=== PATIENT | female | born 1950 | race Caucasian/White ===

== ENCOUNTER → 2020-07-01 | Outpatient (CLI) | payer MEDICARE ==
--- NOTE | 2020-07-01 16:24 | CONS ---
CONSULTATION DATE OF CONSULTATION: 07/01/2020 DATE OF SERVICE: A 70-year-old lady who has been [facility]uated [facility] for obstructive sleep apnea-hypopnea syndrome. The patient was seen in the [facility] for obstructive sleep apnea, last time 4 years ago. Presently, the patient's sleep schedule is from 9 to 10 p.m. to 6 to 7 a.m. Usually no problems with falling asleep although patient has TV in bedroom. Prefers to sleep on the stomach position. The patient is on treatment with CPAP for many years. With this therapy she wakes up from sleep once with nocturia. No history of hypnagogic hallucinations, sleep paralysis or cataplexy. [place] Sleepiness Scale is zero. Recently, patient had developed some problems with her machine. It was attempted to be fixed but it was not fully fixed. I checked CPAP unit. Pressure is 8 cm of water. For the last week the patient used it every night. Average 8.8 hours per night. Leak is 13 L/minute which is borderline. Apnea-hypopnea index 1.6, which is normal. The patient is using Dawson FX medium nasal pillow mask. PAST MEDICAL HISTORY: Positive for hypertension, hypothyroidism, hyperlipidemia. PAST SURGICAL HISTORY: Right knee replacement and bilateral shoulder replacement. MEDICATIONS: Aspirin 81 mg once a day, Atorvastatin 20 mg once a day, levothyroxine 125 mcg once a day. SOCIAL HISTORY: Negative for smoking. Alcohol consumption occasional. FAMILY HISTORY: Colon cancer in her mother. REVIEW OF SYSTEMS: Sometimes awakenings from sleep. Multiple awakenings and snoring without CPAP therapy. PHYSICAL EXAM: GENERAL: lady without distress. VITAL SIGNS: BP 154/94, HR 92, RR 15, height 5 feet 1 inch, weight 226, BMI 42.7, temperature 98.6, oxygen saturation at room air 95%. HEENT: PERRLA, EOMI: Evaluation of oropharynx showed tongue protrudes midline. Low position of soft palate. NECK: Supple, no JVD. Thyroid is not palpable. LUNGS: Clear to percussion and to auscultation. Good air exchange. No wheezing or rhonchi. HEART: S1, S2 regular. No murmurs, gallops, or rubs. ABDOMEN: Obese. Soft and nontender. Bowel sounds are present. No organomegaly appreciated. EXTREMITIES: No clubbing or cyanosis. ARTISTIC DIRECTOR: Awake, alert, and oriented X3. Cranial nerves 2 to 7 intact. There is no fasciculation or atrophy. noted. No focal deficits observed. IMPRESSION: 1. Obstructive sleep apnea-hypopnea syndrome for many years. The patient continues to use CPAP equipment. Presently her machine has some problems, some leak. CPAP unit needs to be replaced. 2. Obesity with BMI 42.7. 3. Hypertension. 4. Hypothyroidism. 5. Hyperlipidemia. 6. Status post total right knee replacement. 7. Status post bilateral shoulder replacement. PLAN: 1. Prescription for new CPAP unit. 2. Sleep hygiene with regular time in bed for 7 1/2 -8 hours. 3. No driving if feeling sleepiness. 4. Losing weight program. 5. I will see patient for follow-up visit after she starts to use her new machine for evaluation response and treatment compliance with treatment and make any necessary adjustments. Thank you very much for allowing me to participate in the management of your patient. South Zuniga MD, PhD, FAASM Diplomat of [place] [employer] [place] [employer] Supervisor of [facility] [place] MMODL / JOAQUIMN: [id number] /
== END | disposition home or self-care (01) ==
LOC: SLEEP 13:28
PROVIDERS: ATTEND Internal Medicine
DX: G47.33 Obstructive sleep apnea (adult) (pediatric) (principal); E66.9 Obesity, unspecified; Z68.41 Body mass index [BMI] 40.0-44.9, adult; I10 Essential (primary) hypertension; E03.9 Hypothyroidism, unspecified; E78.5 Hyperlipidemia, unspecified; Z96.651 Presence of right artificial knee joint; Z96.611 Presence of right artificial shoulder joint; Z99.89 Dependence on other enabling machines and devices; Z79.899 Other long term (current) drug therapy; Z79.890 Hormone replacement therapy; Z79.82 Long term (current) use of aspirin; Z96.612 Presence of left artificial shoulder joint
CPT/HCPCS: 99211

== ENCOUNTER → 2021-03-02 | Outpatient (CLI) | payer MEDICARE ==
[2021-03-02 12:59] VITALS: BP 152/101; PULSE 75; RESP 16; TEMP 98.7
--- NOTE | 2021-03-02 13:26 | P.GSHP ---
History of Present Illness H&P Date: 03/02/21 Chief Complaint: Carcinoma right breast Adela is a 71-year-old white female with a biopsy-proven carcinoma of the right breast seen in conjunction with her daughter in consultation for Dr. Henry Colby. She underwent a bilateral screening mammogram [place] [address]. This led to additional workup of the right breast which revealed 2 lesions in the 4 o'clock position. Each were biopsied and proven to be invasive ductal carcinoma. The largest lesion is 7 mm x 7 mm. The patient does not feel any lumps masses or nodules of concern in either breast. She is not complaining of any nipple discharge or skin changes. There is concern that the lesion was present last year. The patient on 02-14-21 underwent a computed tomography scan following a colonoscopy secondary to abdominal pain. Although no evidence of perforation was identified she was noted to have a kidney stone. She was told she would need lithotripsy to be performed however this is not yet been set up. She is symptomatic and her right flank related to the kidney stone. The patient states at the colonoscopy 2 polyps were removed, she believes she should have a repeat colonoscopy in 5 years. The patient also has a vaginal wall prolapse and has a date for surgery scheduled on 03-16-21. This is with Dr. Casarez in [place]. She has never had any surgery on her breasts. She is not complaining of any infection or trauma to the breast. ER Positive, MI positive, HER-2 -, grade 2 T1 N0 M0/stage IA; Caffeine: none nicotine: none chocolate: daily Family History: mother: colon cancer Hormonal History: menarche: 13 , breast fed: yes, age at first : 20 menopause: hysterctomy at 33 left ovaries, not sure when went through menopause BCP: none hormones: for less than a year at menopause Surgical history: Hysterectomy left ovaries Appendectomy Cholecystectomy Bilateral shoulder replacement Right knee replaced, spacer in the left knee Medical History: Asthma Hypothyroid high lipids asa daily Social history: Nicotine: Negative Alcohol: He is Drugs: Negative Social history: - Constitutional Constitutional: Denies chills, Denies fever - EENT Eyes: denies blurred vision, denies pain Ears: deny: decreased hearing, tinnitus Ears, nose, mouth and throat: Denies headache, Denies sore throat - Breasts Breasts: bilateral: as per HPI - Cardiovascular Cardiovascular: Denies chest pain, Denies shortness of breath - Respiratory Respiratory: Denies cough, Denies 7 - Gastrointestinal Gastrointestinal: Reports diarrhea, Denies abdominal pain, Denies nausea, Denies vomiting - Genitourinary (Female) Genitourinary: Reports kidney stones - Menstruation Menstruation: Reports post hysterectomy - Musculoskeletal Musculoskeletal: Reports as per HPI - Integumentary Integumentary: Denies pruritus, Denies rash - Neurological Neurological: Denies numbness, Denies weakness - Psychiatric Psychiatric: Denies anxiety, Denies depression - Endocrine Comment: hypothyroid - Hematologic/Lymphatic Comment: daily aspirin - Allergic/Immunologic Allergic/Immunologic: Reports seasonal allergies Medications and Allergies Home Medications Medication Instructions Recorded Confirmed Type Aspirin [Adult Low Dose Aspirin EC] 81 mg PO HS 03/02/21 03/02/21 History Atorvastatin [Lipitor] 20 mg PO QAM 03/02/21 03/02/21 History Cholecalciferol (Vitamin D3) 125 mcg PO QAM 03/02/21 03/02/21 History [Vitamin D3 (125 MCG = 5,000 IU)] Levothyroxine Sodium [Synthroid] 125 mcg PO QAM 03/02/21 03/02/21 History Sodium Bicarbonate 325 mg PO QAM 03/02/21 03/02/21 History Allergies Allergy/AdvReac Type Severity Reaction Status Date / Time Iodinated Contrast Media Allergy Anaphylaxis Unverified 03/02/21 12:24 Surgical - Exam BMI 41 - General no distress - Eyes normal ocular movement - ENT no hearing loss - Neck no masses, trachea midline - Respiratory normal respiratory effort, clear to auscultation - Cardiovascular Rhythm: regular Heart Sounds: normal: S1, S2 - Abdomen Abdomen: soft, non tender, no guarding, no rigid, no rebound - Integumentary normal turgor - Neurologic no disoriented, no combative - Musculoskeletal normal gait, normal posture - Psychiatric oriented to time, oriented to person, oriented to place, speech is normal, memory intact Breast Exam: Bra: 42A inspection: bilateral grade 2 ptosis Palpation: Right breast: Ecchymosis from prior biopsy, no evidence of hematoma or infection, multiple positional exam increased nodularity 4 o'clock position no other dominant masses or nodules of concern Right axilla: No adenopathy of concern Left breast: Multiple positional exam fibrocystic changes no dominant masses or nodules of concern Results Mammogram and ultrasound reviewed with Dr. Hinton Assessment and Plan Assessment: Impression: 1. Stage I a multifocal right breast cancer at 4:00 2. Bladder prolapse 3. Kidney stone 4. Hypothyroid 5. Patient takes daily aspirin Plan: 1. Presentation of case at tumor board 2. Patient would prefer to have the bladder prolapse repaired prior to surgical intervention for the breast cancer we will discuss this with medical oncology 3. Kidney stone must be addressed ( she has an appointment with urology next week, however if she is symptomatic she is going to the emergency room) 4. Patient has appointment with medical oncology tomorrow, would like to know if patient could be put on an antiestrogen until after bladder surgery and kidney stone is taken care of and then surgery for the breast cancer We will discuss surgical options for the breast cancer. The timing of the surgery will be dependent on her other procedures. CC: Rosaura Clement Cc: Dr. Henry Colby
== END ==
LOC: WWCWWP 11:49
PROVIDERS: ATTEND Surgery
DX: C50.911 Malignant neoplasm of unspecified site of right female breast (principal); N20.0 Calculus of kidney; E03.9 Hypothyroidism, unspecified; N81.10 Cystocele, unspecified; J45.909 Unspecified asthma, uncomplicated; Z17.0 Estrogen receptor positive status [ER+]; Z79.899 Other long term (current) drug therapy; Z79.82 Long term (current) use of aspirin; Z91.041 Radiographic dye allergy status

== ENCOUNTER → 2021-03-24 | Outpatient (CLI) | payer MEDICARE ==
[2021-03-24 10:54] LABS: Basophils % (A) 1 %; Eosinophils # (A) 0.4 k/uL (0-0.7); Eosinophils % (A) 7 %; HCT 45.8 % (34.0-46.0); HGB 15.2 gm/dL (11.4-16.0); Lymphocytes % (A) 18 %; MCH 30.9 pg (25.0-35.0); MCHC 33.2 g/dL (31.0-37.0); Mean Platelet Volume 6.7; Monocytes # (A) 0.3 k/uL (0-1.0); Monocytes % (A) 6 %; Neutrophils # (A) 3.7 k/uL (1.3-7.7); Neutrophils % (A) 67 %; Platelet Count 255 k/uL (150-450); RBC 4.93 m/uL (3.80-5.40); RDW 13.1 % (11.5-15.5); WBC 5.6 k/uL (3.8-10.6)
[2021-03-24 11:21] LABS: Calcium 9.6 mg/dL (8.4-10.2); Potassium 4.4 mmol/L (3.5-5.1)
[2021-03-24 11:31] LABS: Appearance,Urine Clear (Clear); Bilirubin,Urine Negative (Negative); Blood,Urine Small (Negative); Color,Urine Yellow; Glucose,Urine (UA) Negative (Negative); Hyaline Casts,Urine 13 /lpf (0-2); Ketones,Urine Negative (Negative); Leukocyte Esterase,Urine Moderate (Negative); Mucus,Urine Rare /hpf; Nitrite,Urine Negative (Negative); Protein,Urine Negative (Negative); RBC,Urine 4 /hpf (0-5); Specific Gravity,Urine 1.015 (1.001-1.035); Squamous Epithelial Cell,Urine 1 /hpf (0-4); Urobilinogen,Urine <2.0 mg/dL (<2.0); WBC,Urine 9 /hpf (0-5)
== END | disposition home or self-care (01) ==
LOC: LABPAT 09:56
PROVIDERS: ATTEND Urology
DX: Z01.812 Encounter for preprocedural laboratory examination (principal); N20.0 Calculus of kidney; R13.0 Aphagia
CPT/HCPCS: 36415; 80048; 81001; 85025; 87086

== ENCOUNTER 2021-03-31 09:19 | Day surgery (SDC) | payer MEDICARE ==
[2021-03-29 15:13] VITALS: BMI 40.6
--- NOTE | 2021-03-31 09:00 | P.HPIHPCON ---
History of Present Illness H&P Date: 03/31/21 Chief Complaint: Right-sided renal stone This is a 71-year-old female, with a history of 2.3 cm right-sided renal stone. She is symptomatic from her stone. Discussed with her given the size of her stone the recommendation of performing it percutaneous nephrolithotomy. I also discussed with her the option of doing a staged ESWL versus staged ureteroscopy, but did discussed both operations have lower stone clearance rate, compared to percutaneous nephrolithotomy. She agreed to proceed with right-sided percutaneous nephrolithotomy. Discussed with her the risk of the surgery which includes but not limited to bleeding, infection, and injury to the kidney, discussed also the risk of injury to nearby organs which includes but not limited to the liver, lung, bowel. Discussed also with her risk from anesthesia. She understood all the risk and agreed to proceed Consent for Procedure: I have explained the operation/procedure to the patient, including the risks, benefits, side effects, alternative therapies (including not receiving the pr oposed treatment or service), the likelihood of the patient achieving his/her goals, and potential recuperation problems for the procedure/sedation/analgesia, as well as any blood products, if indicated. I also explained to the patient the risks, benefits and side effects of the alternatives, as well as the risks related to not receiving the proposed procedure, care, treatment, or services. Past Medical History Past Medical History: Asthma, Cancer, Hyperlipidemia, Osteoarthritis (OA), Sleep Apnea/CPAP/BIPAP, Thyroid Disorder Additional Past Medical History / Comment(s): kidney stones; hx.of bladder prolapse; just finished antibiotic for pneumonia, cough is much improved, just dx. w/breast cancer & will be having surgery for that next month History of Any Multi-Drug Resistant Organisms: None Reported Past Surgical History: Appendectomy, Cholecystectomy, Hysterectomy Additional Past Surgical History / Comment(s): JELENA shoulders replaced, RT knee replaced, spacer left knee, repair of [facility] prol[facility] within past 2 weeks Past Anesthesia/Blood Transfusion Reactions: No Reported Reaction Smoking Status: Never smoker Medications and Allergies Home Medications Medication Instructions Recorded Confirmed Type Aspirin [Adult Low Dose Aspirin EC] 81 mg PO HS 03/02/21 03/29/21 History Atorvastatin [Lipitor] 20 mg PO QAM 03/02/21 03/29/21 History Cholecalciferol (Vitamin D3) 25 mcg PO QAM 03/02/21 03/29/21 History [Vitamin D3 (125 MCG = 5,000 IU)] Levothyroxine Sodium [Synthroid] 125 mcg PO QAM 03/02/21 03/29/21 History Acetaminophen/Diphenhydramine 1 tab PO HS 03/29/21 03/29/21 History [Tylenol PM 500-25mg] Albuterol Inhaler [Ventolin Hfa 2 puff INHALATION RT-QID PRN 03/29/21 03/29/21 History Inhaler] Albuterol Nebulized [Ventolin 1.25 mg INHALATION Q6H PRN 03/29/21 03/29/21 History Nebulized] Loratadine [Claritin] 10 mg PO DAILY PRN 03/29/21 03/29/21 History Allergies Allergy/AdvReac Type Severity Reaction Status Date / Time Iodinated Contrast Media Allergy Anaphylaxis Unverified 03/29/21 15:13 Surgical - Exam - General no distress, moderate pain - Eyes PERRL, normal ocular movement - ENT normal nares, normal mucosa - Respiratory normal expansion, normal respiratory effort - Abdomen Abdomen: soft, non tender - Psychiatric oriented to time, oriented to person, oriented to place Assessment and Plan Assessment: Or for right-sided percutaneous nephrolithotomy
[~2021-03-31 09:19] MED LIST: DEXAMETHASONE SOD PHOSPHATE 4 MG/ML 1 ML VIAL IV ONE; HYDROmorphone 0.5 MG/0.5 ML SYRINGE IVP PRN; ONDANSETRON 4 MG/2 ML VIAL IVP ONE
--- NOTE | 2021-03-31 09:43 | XR ---
EXAMINATION TYPE: XR KUB DATE OF EXAM: 03/31/2021 Comparison: 11/25/2012 Clinical History: 71-year-old female preoperative evaluation, kidney stones Findings: Degenerated levoconvex curvature of the lumbar spine. 2.0 cm calcification right midabdomen. Nonobstr uctive bowel gas pattern. Mild scattered stool. Cholecystectomy clips. Impression: 2 cm right renal calculus may be located within the renal collecting system.
[2021-03-31] MEDS: LACTATED RINGERS 1,000 ML IV SCH (09:51)
[2021-03-31] MEDS ORDERED: ALBUTEROL NEBULIZED 2.5 MG/3 ML INHALATION PRN (11:23)
[2021-03-31] MEDS ORDERED: ACETAMINOPHEN TAB 325 MG TAB PO PRN (11:23)
[2021-03-31] MEDS ORDERED: MAG HYDROX/AL HYDROX/SIMETH 30 ML CUP PO PRN (11:23)
[2021-03-31] MEDS ORDERED: ONDANSETRON 4 MG/2 ML VIAL IVP PRN ×2 (11:23→11:25)
[2021-03-31] MEDS ORDERED: ALBUTEROL NEBULIZED 1.25 MG/3 ML INHALATION PRN (11:23)
[2021-03-31] MEDS ORDERED: LORATADINE 10 MG TAB PO PRN (11:23)
[2021-03-31] MEDS ORDERED: MORPHINE SULFATE 4 MG/ML SYRINGE IVP PRN (11:25)
[2021-03-31] MEDS ORDERED: MIDAZOLAM 2 MG/2 ML VIAL ONE (11:29)
[2021-03-31] MEDS ORDERED: fentaNYL (PF) 50 MCG/ML 2 ML AMP ONE (11:29)
[2021-03-31] MEDS ORDERED: ROCURONIUM 10 MG/ML (5 ML VIAL) IV ONE (11:29)
[2021-03-31] MEDS ORDERED: GLYCOPYRROLATE 0.2 MG/ML 2 ML VIAL ONE (11:29)
[2021-03-31] MEDS ORDERED: diphenhydrAMINE 50 MG/ML 1 ML VIAL ONE (11:29)
[2021-03-31] MEDS ORDERED: SUCCINYLCHOLINE CHLORIDE 100 MG/5 ML SYR IV ONE (11:29)
[2021-03-31] MEDS ORDERED: LIDOCAINE 1% INJ 10MG/ML (20 ML MDV) ONE (11:29)
[2021-03-31] MEDS ORDERED: PROPOFOL 10 MG/ML 20 ML VIAL IV ONE (11:29)
[2021-03-31] MEDS ORDERED: NEOSTIGMINE 1 MG/ML 10 ML VIAL ONE (11:29)
[2021-03-31] MEDS ORDERED: IOPAMIDOL-370 50ML BTL IRRIGATION ONE (12:41)
--- NOTE | 2021-03-31 13:52 | P.OP ---
Date of Procedure: 03/31/21 Preoperative Diagnosis: Right renal calculi Postoperative Diagnosis: Same Procedure(s) Performed: Cystoscopy, right ureteral catheterization, percutaneous nephrolithotomy and nephrostomy tube placement Implants: None Anesthesia: ULYSSES Surgeon: Ja Whitten Estimated Blood Loss (ml): 100 Pathology: other (Right renal stone) Condition: stable Disposition: PACU Indications for Procedure: This is a 71-year-old female, with a history of 2.3 cm right-sided renal stone. She is symptomatic from her stone. Discussed with her given the size of her stone the recommendation of performing it percutaneous nephrolithotomy. I also discussed with her the option of doing a staged ESWL versus staged ureteroscopy, but did discussed both operations have lower stone clearance rate, compared to percutaneous nephrolithotomy. She agreed to proceed with right-sided percutaneous nephrolithotomy. Discussed with her the risk of the surgery which includes but not limited to bleeding, infection, and injury to the kidney, discussed also the risk of injury to nearby organs which includes but not limited to the liver, lung, bowel. Discussed also with her risk from anesthesia. She understood all the risk and agreed to proceed Operative Findings: Large right-sided renal stone Description of Procedure: Patient was brought to the operating room general anesthesia was induced she was prepped and draped in sterile fashion placed in frog leg position on the stretcher. Cystoscopy fitted with a 21-[place] Islander sheath was inserted per urethra, brief cystoscopy was performed showed no abnormality within the bladder, of note I was not able to visualize the dome lateral wall the bladder completely. Attention was then carried to the right ureteral orifice which was intubated with a balloon occluding catheter. 16-[place]er Walters was placed, and the balloon catheter was secured to the Walters. At this time the patient was placed in prone position, all pressure points were padded. The right flank was prepped and drap ed in sterile fashion. Next air was injected through the balloon occluding catheter, and right renal access was obtained by Dr. Royal, please see his op note for his portion of the operation. After 2 wires were passed down the ureter a nephrostomy balloon dilator was passed over this wire, and under fluoroscopy the tract was dilated. Next a 30-[place]er access sheath was passed over the balloon dilator and into the kidney. The access was at the middle calyx. Next the rigid nephroscope was advanced through the access sheath and a large stone was visualized in the renal pelvis. Using the ultrasound the stone was fragmented into small fragments, the fragments were removed and sent for analysis. Repeat renoscopy showed no additional fragments within the kidney. Next a flexible cystoscope was advanced through the access sheath and renoscopy was performed evaluating all the calyx which showed no other stones within the kidney, there was no injury to the kidney, there was no evidence of any ureteral stone at the proximal ureter. I was unable to advance the scope into the proximal ureter. At this time a 10-[place] nephrostomy tube was passed over the wire, the location was confirmed on fluoroscopy. The tube was secured to the patient's skin using 2-0 silk. Sterile dressing was placed. Patient tolerated the procedure well was taken to recovery in stable condition
[2021-03-31] MEDS: fentaNYL (PF) 50 MCG/ML 2 ML AMP IVP ONE ×2 (14:19→14:25)
[2021-03-31] MEDS ORDERED: KETOROLAC 15 MG/ML 1 ML VIAL IVP ONE (14:19)
[2021-03-31] MEDS ORDERED: HYDROmorphone 0.5 MG/0.5 ML SYRINGE IVP ONE (14:30)
--- NOTE | 2021-03-31 14:33 | FL ---
EXAMINATION TYPE: FL Perc Nephrostomy New Access DATE OF EXAM: 03/31/2021 COMPARISON: NONE HISTORY: Right renal stone Procedure had been discussed with the patient by Dr. Stark, risks, benefits, alternatives, were dis cussed and any questions were answered. Informed consent was obtained. The patient was in a semipro ne position prepped and draped on the OR table in the usual sterile fashion. Utilizing a 15 cm lengt h [place] needle a single pass was made into a lower pole posterior calyx under fluoroscopic guidance. An 0.018 guidewire is passed through the needle and there was placement of a 6-[place]namese catheter sheat h system. There was conversion to a 0.035 system was performed with passage of a guidewire into the ureter utilizing a directional catheter. A second safety wire was placed. Remaining portion of pro cedure performed by . Approximately 2 minutes and 20 seconds of fluoroscopy was provided. IMPRESSION: 1. Successful intraoperative right nephrostomy prior to nephrolithotomy.
[2021-03-31] MEDS ORDERED: LACTATED RINGERS 1,000 ML IV ONE (14:57)
[2021-03-31] MEDS ORDERED: ceFAZolin 1 GM in SODIUM CHLORIDE 0.9% 100 ML IVPB SCH (16:00)
[2021-03-31] MEDS: DEXTROSE 5%-0.45% NACL 1,000 ML IV SCH (16:17)
[2021-03-31] MEDS: HEPARIN SODIUM,PORCINE/PF 5,000 UNIT/0.5 ML SYRINGE SQ SCH (16:17)
[2021-03-31] MEDS: KETOROLAC 15 MG/ML 1 ML VIAL IVP SCH (18:18)
[2021-03-31] MEDS ORDERED: diphenhydrAMINE 25 MG CAP PO SCH (21:00)
[2021-03-31] MEDS ORDERED: NON FORMULARY DRUG (Acetaminophen/Diphenhydramine [Tylenol Pm 500-25mg] 1 EACH Tablet) PO SCH (21:00)
[2021-03-31] MEDS ORDERED: ACETAMINOPHEN TAB 500 MG TAB PO SCH (21:00)
[2021-04-01] MEDS: KETOROLAC 15 MG/ML 1 ML VIAL IVP SCH ×2 (00:07→06:05)
[2021-04-01] MEDS: HEPARIN SODIUM,PORCINE/PF 5,000 UNIT/0.5 ML SYRINGE SQ SCH ×2 (00:07→07:52)
[2021-04-01] MEDS: DEXTROSE 5%-0.45% NACL 1,000 ML IV SCH ×2 (01:30→07:52)
[2021-04-01] MEDS: LACTATED RINGERS 1,000 ML IV SCH (06:04)
[2021-04-01] MEDS ORDERED: LEVOTHYROXINE 125 MCG TAB PO SCH (06:30)
[2021-04-01 08:51] VITALS: BP 155/70; PULSE 72; RESP 17; TEMP 97.9
[2021-04-01] MEDS ORDERED: ATORVASTATIN 20 MG TAB PO SCH (09:00)
--- NOTE | 2021-04-01 09:03 | P.DS ---
Providers Attending physician: Ja Whitten MD Primary care physician: [facility] Course: This is 71 yo female with hx of large right sided renal stone. She underwent right sided PCNL on 03/31/21, please see op note dated 03/31/21 for surgery details. She was admitted to the hospital post operatively. Her fiore was removed on POD #1. She was discharged home on POD #1 at time of discharge she was tolerating diet, ambulating and pain was well controlled. Plan - Discharge Summary Discharge Rx Participant: Yes New Discharge Prescriptions: New Ketorolac [Toradol] 10 mg PO Q6HR PRN #15 tab PRN Reason: Pain Cephalexin [Keflex] 500 mg PO Q8HR #15 cap HYDROcodone/APAP 5-325MG [[place] 5-325] 1 tab PO Q6HR PRN 3 Days #10 tab PRN Reason: Pain No Action Cholecalciferol (Vitamin D3) [Vitamin D3 (125 MCG = 5,000 IU)] 25 mcg PO QAM Atorvastatin [Lipitor] 20 mg PO QAM Aspirin [Adult Low Dose Aspirin EC] 81 mg PO HS Levothyroxine Sodium [Synthroid] 125 mcg PO QAM Albuterol Inhaler [Ventolin Hfa Inhaler] 2 puff INHALATION RT-QID PRN PRN Reason: Shortness Of Breath Acetaminophen/Diphenhydramine [Tylenol PM 500-25mg] 1 tab PO HS Loratadine [Claritin] 10 mg PO DAILY PRN PRN Reason: allergies Albuterol Nebulized [Ventolin Nebulized] 1.25 mg INHALATION Q6H PRN PRN Reason: Shortness Of Breath Discharge Medication List Aspirin [Adult Low Dose Aspirin EC] 81 mg PO HS 03/02/21 [History] Atorvastatin [Lipitor] 20 mg PO QAM 03/02/21 [History] Cholecalciferol (Vitamin D3) [Vitamin D3 (125 MCG = 5,000 IU)] 25 mcg PO QAM 03/02/21 [History] Levothyroxine Sodium [Synthroid] 125 mcg PO QAM 03/02/21 [History] Acetaminophen/Diphenhydramine [Tylenol PM 500-25mg] 1 tab PO HS 03/29/21 [History] Albuterol Inhaler [Ventolin Hfa Inhaler] 2 puff INHALATION RT-QID PRN 03/29/21 [History] Albuterol Nebulized [Ventolin Nebulized] 1.25 mg INHALATION Q6H PRN 03/29/21 [History] Loratadine [Claritin] 10 mg PO DAILY PRN 03/29/21 [History] Cephalexin [Keflex] 500 mg PO Q8HR #15 cap 04/01/21 [Rx] HYDROcodone/APAP 5-325MG [[place] 5-325] 1 tab PO Q6HR PRN 3 Days #10 tab 04/01/21 [Rx] Ketorolac [Toradol] 10 mg PO Q6HR PRN #15 tab 04/01/21 [Rx] Activity/Diet/Wound Care/Special Instructions: Increase fluid intake You may see some blood in urine You may shower no baths No heavy lifting or straining Discharge Disposition: HOME SELF-CARE
== END 2021-04-01 12:47 | disposition home or self-care (01) ==
LOC: OR 09:19 → 6PED 13:31 → OR 04-01 12:47
PROVIDERS: ATTEND Urology
DX: N20.0 Calculus of kidney (principal); J45.909 Unspecified asthma, uncomplicated; E78.5 Hyperlipidemia, unspecified; M19.90 Unspecified osteoarthritis, unspecified site; G47.33 Obstructive sleep apnea (adult) (pediatric); Z20.822 Contact with and (suspected) exposure to COVID-19; E07.9 Disorder of thyroid, unspecified; C50.919 Malignant neoplasm of unspecified site of unspecified female breast; Z87.442 Personal history of urinary calculi; Z87.01 Personal history of pneumonia (recurrent); Z90.49 Acquired absence of other specified parts of digestive tract; Z90.710 Acquired absence of both cervix and uterus; Z96.612 Presence of left artificial shoulder joint; Z96.611 Presence of right artificial shoulder joint; Z96.651 Presence of right artificial knee joint; Z98.890 Other specified postprocedural states; Z79.82 Long term (current) use of aspirin; Z79.890 Hormone replacement therapy; Z79.899 Other long term (current) drug therapy; Z91.041 Radiographic dye allergy status; Z91.048 Other nonmedicinal substance allergy status
CPT/HCPCS: 50081; 86900; 86901; 86850; 82365; 87635; 50432; 74018; C1758; C2628 ×2; C1769 ×6; C1729 ×2; C1894 ×2; J2250; J1200; J1100; J2710; J0690 ×3; J2405; J2001; J3010; J1885 ×2; J0330; J2704; J1170; Q9967; J1644 ×2

== ENCOUNTER → 2021-04-14 | Outpatient (CLI) | payer MEDICARE ==
[2021-04-14 15:14] VITALS: BP 162/95; PULSE 103; RESP 18; TEMP 98.4
--- NOTE | 2021-04-14 15:46 | P.PN ---
Subjective Progress Note Date: 04/14/21 Principal diagnosis: Right breast invasive ductal carcinoma/multifocal/stage IA Adela is a 71-year-old white female with a biopsy-proven carcinoma of the right breast seen in conjunction with her daughter in consultation for Dr. Henry Colby on 03-02-21. She underwent a bilateral screening mammogram on . This led to additional workup of the right breast which revealed 2 lesions in the 4 o'clock position. Each were biopsied and proven to be invasive ductal carcinoma. The largest lesion is 7 mm x 7 mm. The patient does not feel any lumps masses or nodules of concern in either breast. She is not complaining of any nipple discharge or skin changes. There is concern that the lesion was present last year. Her case was presented at tumor Board and there was recommendation for lumpectomy with sentinel node biopsy. She will be recommended to undergo ra diation therapy following the lumpectomy she is presently not on hormone therapy although this was discussed with medical oncology as her surgery was delayed secondary to patient request to have bladder prolapse repaired as well as a symptomatic kidney stone taken care of. The patient on 02-14-21 underwent a computed tomography scan following a colonoscopy secondary to abdominal pain. Although no evidence of perforation was identified she was noted to have a kidney stone. She was told she would need lithotripsy to be performed however this is not yet been set up. She is symptomatic and her right flank related to the kidney stone. She had a lithotripsy performed followed by removal of the stone through an incision in the back. The drain was removed earlier today. She was cleared for surgery from urology. The bladder prolapse was operated on 03-16-21, she has healed well from this. The patient states at the colonoscopy 2 polyps were removed, she believes she should have a repeat colonoscopy in 5 years. The patient also has a vaginal wall prolapse and has a date for surgery scheduled on 03-16-21. This is with Dr. Casarez in [place]. She has never had any surgery on her breasts. She is not complaining of any infection or trauma to the breast. ER Positive, [place] positive, HER-2 -, grade 2 T1 N0 M0/stage IA; Caffeine: none nicotine: none chocolate: daily Family History: mother: colon cancer Hormonal History: menarche: 13 , breast fed: yes, age at first : 20 menopause: hysterctomy at 33 left ovaries, not sure when went through menopause BCP: none hormones: for less than a year at menopause Surgical history: Hysterectomy left ovaries Appendectomy Cholecystectomy Bilateral shoulder replacement Right knee replaced, spacer in the left knee bladder prolapse kidney stone removed Medical History: Asthma Hypothyroid high lipids asa daily Social history: Nicotine: Negative Alcohol: He is Drugs: Negative Social history: - Constitutional Constitutional: Denies chills, Denies fever - EENT Eyes: denies blurred vision, denies pain Ears: deny: decreased hearing, tinnitus Ears, nose, mouth and throat: Denies headache, Denies sore throat - Breasts Breasts: bilateral: as per HPI - Cardiovascular Cardiovascular: Denies chest pain, Denies shortness of breath - Respiratory Respiratory: Denies cough - Gastrointestinal Gastrointestinal: Reports diarrhea, Denies abdominal pain, Denies nausea, Denies vomiting - Genitourinary (Female) Genitourinary: Reports kidney stones - Menstruation Menstruation: Reports post hysterectomy - Musculoskeletal Musculoskeletal: Reports as per HPI - Integumentary Integumentary: Denies pruritus, Denies rash - Neurological Neurological: Denies numbness, Denies weakness - Psychiatric Psychiatric: Denies anxiety, Denies depression - Endocrine Comment: hypothyroid - Hematologic/Lymphatic Comment: daily aspirin - Allergic/Immunologic Allergic/Immunologic: Reports seasonal allergies Objective - Vital Signs Vital signs: Vital Signs Temp 98.4 F 04/14/21 15:11 Pulse 103 H 04/14/21 15:11 Resp 18 04/14/21 15:11 BP 162/95 04/14/21 15:11 Pulse Ox 98 04/14/21 15:11 Intake & Output 04/13/21 04/14/21 04/14/21 18:59 06:59 18:59 Weight 98.883 kg - Constitutional General appearance: Present: cooperative - EENT Eyes: Present: EOMI ENT: Present: hearing grossly normal - Neck Neck: Present: normal ROM - Respiratory Respiratory: bilateral: CTA - Cardiovascular Rhythm: regular Heart sounds: normal: S1, S2 - Gastrointestinal General gastrointestinal: Present: soft - Integumentary Integumentary: Present: normal turgor - Musculoskeletal Musculoskeletal: Present: gait normal - Psychiatric Psychiatric: Present: A&O x's 3, appropriate affect, intact judgment & insight - Additional findings Additional findings: Breast Exam: Bra: 42A inspection: Lateral grade 2 ptosis Palpation: right breast: Ecchymosis from prior biopsy, no evidence of hematoma or infection, multiple positional exam increased nodularity 4:00 no other dominant masses or nodules of concern Right axilla: No adenopathy of concern Left breast: Multi-positional exam fibrocystic changes no dominant masses or nodules of concern Left axilla: No adenopathy of concern Assessment and Plan Assessment: Impression: 1. Multifocal stage I a right breast cancer 4:00 2. recent blood or prolapse repair 3. recent kidney lithotripsy 4. hypothyroid 5. patient takes daily aspirin 6. Case presented at tumor board Plan: 1. Two areas for Needle localizations of two sites in the right breast and lumpectomy, sentinel node injection, sentinel node biopsy, possible axillary node dissection, possible methylene blue injection. Possible onco- plastic tissue transfer. Risk and benefits of the procedure were discussed with the patient her daughter. Risks include but are not limited to bleeding, infection, reaction to the anesthetic. Additionally if the margins were to be positive in the breast additional surgery may be required. Risk in the axilla included possible injury to the thoracodorsal and long thoracic nerve, as well as numbness to the inner arm or lymphedema. They understand and wish to proceed. CC: Rosaura Clement
== END ==
LOC: WWCWWP 15:01
PROVIDERS: ATTEND Surgery
DX: C50.911 Malignant neoplasm of unspecified site of right female breast (principal); E03.9 Hypothyroidism, unspecified; Z79.82 Long term (current) use of aspirin; J45.909 Unspecified asthma, uncomplicated; Z91.041 Radiographic dye allergy status

== ENCOUNTER 2021-04-26 08:16 | Day surgery (SDC) | payer MEDICARE ==
[2021-04-25 08:44] VITALS: BMI 42.0
[~2021-04-26 08:16] MED LIST changes: +HEPARIN SODIUM,PORCINE/PF 5,000 UNIT/0.5 ML SYRINGE SQ PRN; -HYDROmorphone 0.5 MG/0.5 ML SYRINGE IVP PRN; +LACTATED RINGERS 1,000 ML IV SCH; +Pre Op ABX Message 1 EACH MISC MISCELLANE ONE
[2021-04-26] MEDS ORDERED: ALPRAZolam 0.25 MG TAB PO ONE (09:08)
[2021-04-26] MEDS ORDERED: HEPARIN SODIUM,PORCINE/PF 5,000 UNIT/0.5 ML SYRINGE SQ ONE (09:11)
[2021-04-26] MEDS ORDERED: ALPRAZolam 0.25 MG TAB ONE (09:11)
[2021-04-26] MEDS ORDERED: LIDOCAINE 2% (PF) 20 MG/ML 10 ML AMP SQ ONE (10:08)
--- NOTE | 2021-04-26 10:34 | P.NAPBC ---
NAPBC Queries - NAPBC Queries Was patient's case review presented at [facility] tumor board? If no, comment.: Yes Was patient's pathology reviewed at [facility]? If no, comment.: Yes Was breast conservation surgery offered? If no, comment.: Yes Was sentinel node biopsy offered? If no, comment.: Yes Was diagnosis confirmed by percutaneous core biopsy? If no, comment.: Yes Is patient mastectomy patient?: No Was a preop referral to reconstructive surgeon offered?: No Clinical Stage: stage IA invasive ductal right breast cancer, multifocal
[2021-04-26] MEDS ORDERED: fentaNYL (PF) 50 MCG/ML 2 ML AMP ONE (11:06)
[2021-04-26] MEDS ORDERED: PROPOFOL 10 MG/ML 20 ML VIAL IV ONE (11:06)
[2021-04-26] MEDS ORDERED: PHENYLEPHRINE-0.9% NACL SYG 1,000 MCG/10 ML SYRINGE ONE (11:06)
[2021-04-26] MEDS ORDERED: LIDOCAINE 1% INJ 10MG/ML (20 ML MDV) ONE (11:06)
[2021-04-26] MEDS ORDERED: MIDAZOLAM 2 MG/2 ML VIAL ONE (11:06)
[2021-04-26] MEDS ORDERED: SUCCINYLCHOLINE CHLORIDE 100 MG/5 ML SYR IV ONE (11:06)
[2021-04-26] MEDS ORDERED: diphenhydrAMINE 50 MG/ML 1 ML VIAL ONE (11:06)
[2021-04-26] MEDS ORDERED: SODIUM CHLORIDE 0.9% 100 ML with ceFAZolin 2,000 MG IV ONE ×2 (11:32)
--- NOTE | 2021-04-26 12:10 | NM ---
EXAMINATION TYPE: NM sentinel node injection DATE OF EXAM: 04/26/2021 COMPARISON: NONE INDICATION: Abnormal mammogram. Informed consent was obtained. A timeout was performed. The area around the right nipple was cleansed with alcohol. In a single dose, a total of 488 uCi Te chnetium 99m Tilmanocept was injected. The patient tolerated the procedure very well. IMPRESSIONS: 1. Successful injection for sentinel node evaluation.
[2021-04-26] MEDS ORDERED: LIDOCAINE 1% INJ 10MG/ML (20 ML MDV) SQ ONE ×3 (12:17→13:43)
[2021-04-26] MEDS ORDERED: LACTATED RINGERS 1,000 ML IV ONE (12:55)
--- NOTE | 2021-04-26 13:58 | P.OP ---
Date of Procedure: 04/26/21 Preoperative Diagnosis: right Breast invasive ductal carcinoma multifocal Postoperative Diagnosis: Same Procedure(s) Performed: Right breast sentinel node biopsy, needle localization excisional lumpectomy, oculoplastic tissue transfer 52 cm Anesthesia: SHIRAA Surgeon: Yecenia Alford Estimated Blood Loss (ml): 5 IV fluids (ml): 1,000 Pathology: other (Breast tissue, sentinel lymph node) Condition: stable Disposition: same day Indications for Procedure: Biopsy-proven right breast cancer multifocal Operative Findings: Dense breast tissue Description of Procedure: Adela is a 71-year-old white female status post ultrasound-guided core biopsy of 2 areas of concern in the right breast. Both were invasive ductal carcinoma. The patient wished to undergo needle localization excisional lumpectomy, and sentinel node biopsy. The patient was first seen in the radiology suite where needle localization of both lesions of concern in the right breast were performed as well as injection for sentinel node biopsy. The patient was then brought to the operative suite. Following induction of anesthesia the neoprobe was utilized to ascertain that there was increased radioactivity in the axilla. This was confirmed. The right breast and axilla were then prepped and draped. An incision was made in the right axilla in the area of greatest radioactivity. This was carried down to the axillary tissue. The tissue was elevated and using the Harmonic scalpel. Was resected. The 10 second count was 2893, the 10 second background count was 21. No other palpable lymph nodes of concern were identified. The lymph node was sent to pathology for permanent section evaluation. Following this the area of the breast was approached. An incision was made in the breast in the medical area area at approximately 3:30. Careful dissection was performed down to the area of both wires. The wires were delivered into the wound. These were followed superiorly being careful to dissect down posteriorly on the pectoralis major muscle. Dissection was performed around the tip of both needles and the tissue was completely removed. The tissue was painted for orientation. The specimen removed was 5 cm x 4 cm at 20 cm. Following this the superior pillar was mobilized. Radiograph of the specimen revealed only one clip. Therefore additional tissue was removed to look for the area of the spiral clip which was not accounted for on the radiograph. Additional tissue was approximately 5 x 4 cm in size for 20 cm. A portion of the superior pillar which had been mobalized was resected and the onco-plastic tissue transferred was 5 cm by 2 cm. Radiograph of the specimen again did not reveal the spiral clip however in the initial x-ray it appeared that the area of density which represented the tumor was present. Intraoperative ultrasound was performed and no clips and no lesions were identified. After the radiograph had been reviewed with radiology it was felt that no further tissue should be removed at this resection. The wound was well irrigated. Titanium clips were placed. The superior pillar which was mobalized into the wound was 5 cm x 2 cm squared 10 cm total tissue was mobilized down into the area of the defect. This was sutured to the inferior tissue. total tissue mobalized was 40 centimeters squared removed and 10 cm mobilized. A total of 50 cm was mobilized. The deep tissues were closed using 3-0 Vicryl suture. This was followed by closure of the subcutaneous tissue with 3-0 Vicryl suture. The skin was closed using 4-0 Monocryl. The patient tolerated the procedure in stable condition. All instrument and sponge counts were correct at the end of the case.
--- NOTE | 2021-04-26 14:09 | US ---
EXAMINATION TYPE: US guide intraoperative DATE OF EXAM: 04/26/2021 COMPARISON: Ultrasound 02/18/2021, localization 04/26/21 HISTORY: Marker location TECHNIQUE: Intraoperative Real-time linear array sonography is performed over the right breast with a ttention 4:00 posterior position. FINDINGS: A metallic marker is not identified by ultrasound. Previous mammographic lesion 5 cm from t he nipple is not radiographically apparent. IMPRESSION: 1. Ultrasound negative for metallic biopsy marker.
[2021-04-26 14:19] VITALS: TEMP 97
[2021-04-26] MEDS: HYDROmorphone 0.5 MG/0.5 ML SYRINGE IVP PRN ×2 (14:37→14:53)
[2021-04-26 14:56] VITALS: RESP 16
[2021-04-26 16:08] VITALS: BP 164/98; PULSE 76
--- NOTE | 2021-04-28 15:21 | MM ---
EXAMINATION TYPE: MG pre op needle loc RT DATE OF EXAM: 04/26/2021 COMPARISON: NONE CLINICAL HISTORY: Malignant biopsy results TECHNIQUE: Needle localization with wire placement and surgical excision of area of concern in the right breast. FINDINGS: The procedure of needle localization with wire placement 2 sites for surgical excision was explained to the patient. Risk, benefits, and alternatives were discussed. An informed consent was then obtained. A timeout was performed. The overlying skin was prepped and draped in usual sterile fashion. Lidocaine 1% was used as anesthetic into the skin and subcutaneous tissue up to the level of area of concern. A 5 cm needle was used. This was placed via a medial approach under mammographic guidance. A second site was also localized at the same time. A 5 cm needle was used. This was placed via a medial approach under mammographic guidance. Subsequent 90 degrees mammogram show the needles to be in satisfactory position relative to the targeted area. The wire was placed through the needle and the needles were withdrawn. The wires were fixed to patient's skin. Images were marked for surgeon. Images are reviewed prior to surgery surgeon in person. The patient tolerated the procedure well without any immediate complication. Specimen: Specimen was submitted and demonstrates 2 intact wires and one surgical marker adjacent to water. This appears to be the anterior localized clip. The OR was notified of the results. A second sample was submitted which contains a metallic foreign body which in consultation with the surgeon is likely the clip placed for the surgical lumpectomy. However, the coil marker cannot be located. The aspirate obtained during the procedure was also imaged. No metallic-type device to correlate with the expected coil clip was identified. This was discussed with the referring surgeon. On review of the initial image the area localized potentially could be within the sample. Awaiting pathology for final recommendations. IMPRESSION: 1. Successful wire localization, 2 sites right breast. 2. There appear to be successful excisions of 2 sites of interest. However, the more posterior core marker could not be documented. Recommendations: 1. Recommendations are pending pathology results. Pathology Results: Malignant A. SENTINEL LYMPH NODE, RIGHT AXILLA, EXCISION: One benign sentinel lymph node negative for metastatic carcinoma. CK7 and AKSHAT stains on blocks A1, A2 and A3 are negative for features of metastatic carcinoma. B. 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 See Surgical Pathology Cancer Case Summary and comment. All margins negative for invasive carcinoma and DCIS. Closest margin to invasive carcinoma: At least 1 mm from lateral margin. Closest margin to DCIS: Less than 1 mm from anterior margin within specimen B. C. RIGHT BREAST, RE-EXCISION LUMPECTOMY: Focal Atypical ductal hyperplasia (see comment). All margins benign and no diagnostic in situ or invasive carcinoma present within specimen. D. ADDITIONAL TISSUE, RIGHT BREAST, EXCISION: Benign breast adipose tissue with benign margins. Recommendation Surgical consult of the right breast. Two lesions, one surgical site. Therapy and follow up. MTDD
== END 2021-04-26 16:21 | disposition home or self-care (01) ==
LOC: OR 08:16
PROVIDERS: ATTEND Surgery
DX: D05.11 Intraductal carcinoma in situ of right breast (principal); N62 Hypertrophy of breast; J45.909 Unspecified asthma, uncomplicated; E03.9 Hypothyroidism, unspecified; E78.5 Hyperlipidemia, unspecified; G47.33 Obstructive sleep apnea (adult) (pediatric); Z87.442 Personal history of urinary calculi; Z90.710 Acquired absence of both cervix and uterus; Z90.49 Acquired absence of other specified parts of digestive tract; Z96.612 Presence of left artificial shoulder joint; Z96.611 Presence of right artificial shoulder joint; Z98.890 Other specified postprocedural states; Z80.0 Family history of malignant neoplasm of digestive organs; Z79.82 Long term (current) use of aspirin; Z79.890 Hormone replacement therapy; Z79.899 Other long term (current) drug therapy; Z91.041 Radiographic dye allergy status
CPT/HCPCS: 19301; 14301; 88342; 88307; 88341; 76098; 19281; 38792; C1819; A9520; J2250; J1200; J1100; J2001 ×2; J2405; J0690; J3010; J2370; J0330; J2704; J1170; J1644

== ENCOUNTER → 2021-05-05 | Outpatient (CLI) | payer MEDICARE ==
[2021-05-05 15:18] VITALS: BP 150/101; PULSE 98; RESP 18; TEMP 98.3
--- NOTE | 2021-05-05 15:18 | P.PN ---
Subjective Progress Note Date: 05/05/21 Principal diagnosis: Adela is a 71-year-old white female status post right breast lumpectomy and sentinel node biopsy performed on . The lumpectomy revealed 2 foci of invasive ductal carcinoma completely excised and 1 sentinel lymph node which was negative. The patient had two clips in the breast which we were attempting to resect in the area of the tumors; one clip was noted in her specimen however both tumors were resected with negative margins. The patient tolerated the procedure with no difficulty. Physical examination: Right breast incisions clean and dry resolving ecchymosis upper inner aspect of the left breast Impression/plan: 1. Patient status post right breast lumpectomy and sentinel node biopsy on postprocedure she is doing well At the time of surgery 2 clips were localized in the right breast only one was retrieved in the radiographs specimen however two tumors were removed with negative margins we will present her case at tumor board to consider if we should repeat a mammogram prior to any radiation therapy 2. Follow-up radiation oncology 3. Follow-up medical oncology CC: Dr. Henry Colby
== END ==
LOC: WWCWWP 14:54
PROVIDERS: ATTEND Surgery
DX: Z09 Encounter for follow-up examination after completed treatment for conditions other than malignant neoplasm (principal); Z98.890 Other specified postprocedural states; Z91.041 Radiographic dye allergy status

== ENCOUNTER → 2021-06-14 | Outpatient (CLI) | payer MEDICARE ==
--- NOTE | 2021-06-14 11:16 | US ---
EXAMINATION TYPE: US kidneys/renal and bladder DATE OF EXAM: 06/14/2021 COMPARISON: KUB 03/31/21, CT dated 11/25/2012 CLINICAL HISTORY: N20.0 calculus kidney. Right renal calculus removed EXAM MEASUREMENTS: Right Kidney: 10.8 x 4.8 x 3.8 cm Left Kidney: 11.1 x 5.0 x 5.0 cm Post Void Residual Volume: Not calculated mL Right Kidney: No hydronephrosis, stones or masses seen Left Kidney: No hydronephrosis or stones seen. ? Mid/upper pole renal mass vs normal dromedary hump = 3.7 x 2.6 x 2.5 cm Bladder: Not distended. Cannot evaluate Bilateral Jets seen: No Normal Post Void Residual: Not calculated d/t bladder not distended. There is no evidence for hydronephrosis at this point in time. No nephrolithiasis is seen. No bj s are identified within the right kidney. Cortical medullary differentiation is maintained Incidental note made of coarse echotexture within the liver which may be due to underlying hepatic steatosis. IMPRESSION: Suspect the prominence of the midpole the left kidney represents a dromedary, however short interval follow-up is suggested for confirmation, consider CT with contrast, MRI to exclude mass. Right renal calculus is not seen.
== END | disposition home or self-care (01) ==
LOC: RADUSWWP 09:24
PROVIDERS: ATTEND Urology
DX: N20.0 Calculus of kidney (principal)
CPT/HCPCS: 76770

== ENCOUNTER → 2021-08-24 | Outpatient (CLI) | payer MEDICARE ==
--- NOTE | 2021-08-25 16:50 | BD ---
EXAMINATION TYPE: Axial Bone Density DATE OF EXAM: 08/24/2021 COMPARISON: NONE CLINICAL HISTORY: Height: 60 IN Weight: 222 LBS FRAX RISK QUESTIONS: Secondary Osteoporosis: 3. Menopause before 45: PARTIAL HYST AGE 32 RISK FACTORS HISTORY OF: Active: YES Diet low in dairy products/other sources of calcium: YES Postmenopausal woman: TOTAL HYST AGE 32 Take estrogen and/or progesterone medications: NOT NOW TOOK FOR ABOUT 5 YEARS MEDICATIONS: Thyroid Medications: YES Which medication: Levothyroxine How Lon+ YEARS Additional Medications: VIT D, LEVOTHYROXINE,VIT B12, OTC SINUS MEDS Additional History: BREAST CANCER WITH RADIATION EXAM MEASUREMENTS: Bone mineral densitometry was performed using the [employer] System. Bone mineral density as measured about the Lumbar spine is: ----- L1-L4(G/cm2): 1.520 T Score Values are as follows: ----- L2: 1.2 ----- L3: 3.4 ----- L4: 2.8 ----- L1-L4: 2.8 Bone mineral density BASELINE Bone mineral density about the R hip (g/cm2): 0.996 Bone mineral density about the L hip (g/cm2): 0.986 T Score values are as follows: -----R Neck: -0.3 -----L Neck: -0.4 -----R Total: 0.4 -----L Total: 0.3 Bone mineral density BASELINE IMPRESSION: Normal (Values between +1 and -1 indicate normal bone mass). Consider repeating this study in 5 year s or sooner if there is some new clinical indication. NOTE: T-SCORE=SD OF THE YOUNG ADULT MEAN.
== END | disposition home or self-care (01) ==
LOC: RADBDWWP 15:31
PROVIDERS: ATTEND Internal Medicine Hematology & Oncology
DX: C50.311 Malignant neoplasm of lower-inner quadrant of right female breast (principal); Z79.890 Hormone replacement therapy
CPT/HCPCS: 77080

== ENCOUNTER → 2022-10-13 | Outpatient (CLI) | payer MEDICARE ==
--- NOTE | 2022-10-13 13:48 | US ---
EXAMINATION TYPE: US venous doppler duplex LE LT DATE OF EXAM: 10/13/2022 1:29 PM COMPARISON: NONE CLINICAL INDICATION: Female, 72 years old with history of M25.562 Z85.9 M17.12; Pain behind left knee x 1 month following left knee replacement, patient on blood thinners SIDE PERFORMED: Left TECHNIQUE: The lower extremity deep venous system is examined utilizing real time linear array sonog jacki with graded compression, doppler sonography and color-flow sonography. VESSELS IMAGED: Common Femoral Vein Deep Femoral Vein Greater Saphenous Vein * Femoral Vein Popliteal Vein Small Saphenous Vein * Proximal Calf Veins (* superficial vessels) Left Leg: Appears negative for DVT IMPRESSION: 1. No ultrasound evidence of deep venous thrombosis left lower extremity.
== END | disposition home or self-care (01) ==
LOC: RADUSWWP 13:07
PROVIDERS: ATTEND Orthopaedic Surgery
DX: M17.12 Unilateral primary osteoarthritis, left knee (principal); Z85.9 Personal history of malignant neoplasm, unspecified

== ENCOUNTER → 2022-11-14 | Outpatient (CLI) | payer MEDICARE ==
--- NOTE | 2022-11-14 09:48 | CT ---
EXAMINATION TYPE: CT knee LT wo con CT DLP: 342 mGycm, Automated exposure control for dose reduction was used. DATE OF EXAM: 11/14/2022 9:25 AM COMPARISON: None CLINICAL INDICATION:Female, 72 years old with history of M25.562, Recent LT knee replacement. C/O maggie n behind knee TECHNIQUE: Axial images were obtained of the left knee . Additional coronal and sagittal reformatted images and soft tissue and bone window were obtained for review. 3-D reconstruction was created on a separate workstation. Contrast used: None Oral contrast used: None FINDINGS: Total left knee arthroplasty changes. Hardware appears intact. There is streak artifact whi ch limits evaluation. No evidence for acute fracture. Small joint effusion is present. Soft tissues a re relatively unremarkable. No definitive finding in the posterior knee to correlate with patient's p ain but evaluation is limited due to streak artifact. Mild atherosclerosis of the arterial vasculatur e. IMPRESSION: 1. Post left total knee arthroplasty changes. No evidence of acute fracture. The hardware appears in appropriate position. No organizing fluid collections. Limit evaluation of the posterior knee due to streak artifact does not demonstrate abnormality to explain the patient's pain. Consider further rossi luation with MRI with metal reduction sequences. 2. Small joint effusion.
== END | disposition home or self-care (01) ==
LOC: RADCTMAIN 08:48
PROVIDERS: ATTEND Orthopaedic Surgery
DX: M25.462 Effusion, left knee (principal); I10 Essential (primary) hypertension; Z85.9 Personal history of malignant neoplasm, unspecified; Z96.652 Presence of left artificial knee joint; Z47.1 Aftercare following joint replacement surgery

== ENCOUNTER → 2022-11-14 | Outpatient (CLI) | payer MEDICARE ==
[2022-11-14 15:07] LABS: Basophils # (A) 0.04 X 10*3/uL (0.00-0.10); Basophils % (A) 0.8 %; Eosinophils # (A) 0.37 X 10*3/uL (0.04-0.35); Eosinophils % (A) 7.1 %; HCT 44.7 % (37.2-46.3); HGB 14.3 g/dL (12.0-15.0); Immature Grans, Automated 0.4 %; Lymphocytes # (A) 1.32 X 10*3/uL (0.90-5.00); Lymphocytes % (A) 25.5 %; MCH 29.4 pg (27.0-32.0); Mean Platelet Volume 9.1 fL (9.5-12.2); Monocytes # (A) 0.45 X 10*3/uL (0.20-1.00); Monocytes % (A) 8.7 %; NRBC Per 100 WBC 0 /100 WBCS (0.0-0.0); Neutrophils # (A) 2.98 X 10*3/uL (1.80-7.70); Neutrophils % (A) 57.5 %; Platelet Count 292 X 10*3/uL (140-440); RBC 4.86 X 10*6/uL (4.10-5.20); RDW 13.2 % (11.5-14.5); WBC 5.18 X 10*3/uL (4.50-10.00)
[2022-11-14 15:48] LABS: Erythrocyte Sedimentation Rate 25 mm/Hr (0-30)
== END | disposition home or self-care (01) ==
LOC: LABWHC1 09:41
PROVIDERS: ATTEND Orthopaedic Surgery
DX: I10 Essential (primary) hypertension (principal); Z85.9 Personal history of malignant neoplasm, unspecified; Z47.1 Aftercare following joint replacement surgery; M25.562 Pain in left knee; Z96.652 Presence of left artificial knee joint
CPT/HCPCS: 36415; 85025; 85652; 86140

== ENCOUNTER → 2023-12-28 | Outpatient (CLI) | payer MEDICARE ==
--- NOTE | 2023-12-28 13:44 | XR ---
EXAMINATION TYPE: XR KUB DATE OF EXAM: 12/28/2023 Comparison: 03/31/2021 Clinical History: 73-year-old female N20.0 CALCULUS OF KIDNEY Findings: Degenerated levoconvex curvature. Moderate stool in the right-side of the abdomen. The previous right -sided 2.1 cm stone seen back in 2020 is no longer identified. No suspicious lesion clearly seen. IMPRESSION: No suspicious calcification clearly identified radiographically. Moderate stool in the right side of the abdomen.
== END | disposition home or self-care (01) ==
LOC: RADXRMAIN 08:07
PROVIDERS: ATTEND Urology
DX: N20.0 Calculus of kidney (principal)
CPT/HCPCS: 74018

== ENCOUNTER → 2024-01-16 | Outpatient (CLI) | payer MEDICARE ==
--- NOTE | 2024-01-16 18:10 | US ---
EXAMINATION TYPE: US kidneys/renal and bladder DATE OF EXAM: 01/16/2024 COMPARISON: CT abdomen 02/14/2022, renal ultrasound 06/14/2021 CLINICAL INDICATION: Female, 74 years old with history of N20.0 CALCULUS OF KIDNEY; Hx rt kid stone EXAM MEASUREMENTS: Right Kidney: 9.3x3.5x4.0 cm Left Kidney: 9.6x4.4x4.4 cm Right Kidney: No hydronephrosis or masses seen Left Kidney: No hydronephrosis or masses seen Bladder: wnl Bilateral Jets seen: Yes There is no evidence for hydronephrosis at this point in time. No nephrolithiasis is seen. Cortical medullary differentiation is maintained bilaterally. No masses are identified. The urinary bladder i s anechoic. Bilateral ureteral jets are seen. exam limited by bowel and body habitus IMPRESSION: No hydronephrosis or nephrolithiasis identified.
== END | disposition home or self-care (01) ==
LOC: RADUSWWP 16:05
PROVIDERS: ATTEND Urology
DX: N20.0 Calculus of kidney (principal); Z87.442 Personal history of urinary calculi
CPT/HCPCS: 76770

== ENCOUNTER → 2024-05-19 | Outpatient (CLI) | payer MEDICARE ==
[2024-05-19 16:36] VITALS: BP 162/99; PULSE 107; RESP 20; TEMP 98.4
--- NOTE | 2024-05-19 17:58 | P.SLEEP ---
History of Present Illness DATE: 05/18/2025 CONSULTATION/NEW PATIENT EVALUATION HISTORY OF PRESENT ILLNESS/SLEEP-WAKE EVALUATION: 74-year-old lady had been evaluated in the sleep center for obstructive sleep apnea hypopnea syndrome. Last time I saw patient in our sleep center about 4 years ago. Patient continued to use your CPAP equipment every night. I checked CPAP unit. Range of the pressure 5-10, average 9.9. Usage is 100% of nights, average 8.6 hours per night. Leak is significantly increased to 37 L/min. Apnea hypopnea index is 2.4 which is normal. SLEEP SCHEDULE: Usually sleep schedule from 10 PM to 7 AM 7 days a week. FALLING ASLEEP: No problems with falling asleep. DURING SLEEP: No snoring while using CPAP. Patient may wake up from sleep once with nocturia. No history of hypnogogical hallucinations, sleep paralysis, or cataplexy. DURING THE DAY/WAKE STATE: No sleepiness during the day. [place] sleepiness scale is 0. Patient does not take naps. PAST MEDICAL HISTORY: Hypothyroidism, hyperlipidemia, hypertension, urinary incontinence, hyperlipidemia, breast cancer. PAST SURGICAL HISTORY: Lumpectomy from right breast for breast cancer. MEDICATIONS: Have been reviewed, please see below. SOCIAL HISTORY: Please see below. FAMILY HISTORY: Please see below. REVIEW OF SYSTEMS: No snoring on CPAP. No fevers. No double vision. No recent chest pain. No shortness of breath. No abdominal pain. No bleeding episodes. No blood in urine. No seizure episodes. PHYSICAL EXAMINATION: GENERAL: A pleasant patient without any distress. VITAL SIGNS: Please see below, weight 200.8 pounds, BMI 39.2. HEENT: PERRLA, EOMI. Evaluation of oropharynx showed tongue protrudes midline, low position of soft palate Mallampati 4. NECK: Supple. No JVD. Thyroid is not palpable. 14 inches in circumference. LUNGS: Clear to percussion and to auscultation. Good air exchange. No wheezing or rhonchi. HEART: S1, S2 regular. No murmurs, gallops or rubs. ABDOMEN: Soft and nontender. Bowel sounds are present. No organomegaly appreciated. EXTREMITIES: No clubbing or cyanosis. SPECIAL COLLECTIONS LIBRARIAN: Awake, alert, and oriented x3. Cranial nerves 2 to 7 intact. There is no fasciculation or atrophy noted. No focal deficits observed. ASSESSMENT: 1. Obstructive sleep apnea hypopnea syndrome for many years. Patient continued to use CPAP equipment every night for the whole night. Normal respiration by results of reading from CPAP unit. No sleepiness during the day. 2. Hypothyroidism. 3. Hyperlipidemia. 4. Hypertension. 5. Status post lumpectomy of right breast for cancer in 2020. PLAN: 1. Patient will continue to use CPAP equipment every night for the whole night. 2. Prescription for all necessary CPAP supplies including nasal pillows [employer] medium size. 3. Preferable position during sleep on the side. 4. No driving if patient feels any sleepiness. Patient is aware of civil and criminal liability for unsafe driving. 5. Sleep hygiene with regular sleep time for at least 7.5-8 hours. 6. Watching weight. 7. Follow-up visit in 8 months. Thank you very much for referring this patient for consultation. Sincerely, South Zuniga MD, PhD, FAASM. Diplomat of [place] [employer], Sleep Medicine Board by [place] [employer] [place] [employer] Utility Bill Collector of [facility] [place] Past Medical History Past Medical History: Asthma, Cancer, Hyperlipidemia, Osteoarthritis (OA), Pneum onia, Sleep Apnea/CPAP/BIPAP, Thyroid Disorder Additional Past Medical History / Comment(s): kidney stones; hx.of bladder prolapse; just finished antibiotic for pneumonia, cough is much improved, just dx. w/breast cancer & will be having surgery for that next month, sinus headaches, bronchitis, headaches History of Any Multi-Drug Resistant Organisms: None Reported Past Surgical History: Appendectomy, Cholecystectomy, Hysterectomy Additional Past Surgical History / Comment(s): JELENA shoulders replaced, RT knee replaced, spacer left knee, repair of vaginal wall prolapse [facility] within past 2 weeks Past Anesthesia/Blood Transfusion Reactions: No Reported Reaction Past Psychological History: Depression Smoking Status: Never smoker Past Alcohol Use History: None Reported Additional Past Alcohol Use History / Comment(s): Never smoker Past Drug Use History: None Reported - Past Family History Mother Family Medical History: Cancer Father Family Medical History: Unable to Obtain Medications and Allergies Home Medications Medication Instructions Recorded Confirmed Type Atorvastatin [Lipitor] 20 mg PO QAM 03/02/21 05/19/24 History Levothyroxine Sodium [Synthroid] 112 mcg PO QAM 03/02/21 05/19/24 History Acetaminophen/Diphenhydramine 1 tab PO HS 03/29/21 05/05/21 History [Tylenol PM 500-25mg] Albuterol Inhaler [Ventolin Hfa 2 puff INHALATION RT-QID PRN 03/29/21 05/05/21 History Inhaler] Albuterol Nebulized [Ventolin 1.25 mg INHALATION Q6H PRN 03/29/21 05/05/21 History Nebulized] Loratadine [Claritin] 10 mg PO DAILY PRN 03/29/21 05/05/21 History Cholecalciferol [Vitamin D3 (25 25 mcg PO DAILY 04/25/21 05/05/21 History Mcg = 1000 Iu)] Sodium Bicarbonate Tab 650 mg PO DAILY 04/25/21 05/05/21 History Letrozole 2.5 mg PO DAILY 05/19/24 05/19/24 History oxyBUTYnin chloride [oxyBUTYnin 5 mg PO DAILY 05/19/24 05/19/24 History chloride ER] Allergies Allergy/AdvReac Type Severity Reaction Status Date / Time Iodinated Contrast Media Allergy Anaphylaxis Verified 04/25/21 08:34 Physical Exam Vitals: Vital Signs Temp Pulse Resp BP Pulse Ox 05/19/24 16:32 98.4 F 107 H 20 162/99 95 Intake and Output 05/19/24 05/19/24 05/19/24 06:59 14:59 22:59 Other: Weight 90.945 kg Sleep Note - Sleep Data ESS Total: 0 - Sleep Note Sleep Note: Temperature: 98.4 F Pulse Rate: 107 Respiratory Rate: 20 Blood Pressure: 162/99 SpO2: 95 Height: 5 ft Weight: 90.945 kg BMI: Neck Circumference: 14
== END ==
LOC: 3 N SLEEP 15:46
PROVIDERS: ATTEND Internal Medicine
DX: G47.33 Obstructive sleep apnea (adult) (pediatric) (principal); E03.9 Hypothyroidism, unspecified; E78.5 Hyperlipidemia, unspecified; I10 Essential (primary) hypertension; Z98.890 Other specified postprocedural states; Z85.3 Personal history of malignant neoplasm of breast; Z99.89 Dependence on other enabling machines and devices; Z91.041 Radiographic dye allergy status; Z79.890 Hormone replacement therapy; Z79.899 Other long term (current) drug therapy
CPT/HCPCS: 99211

== ENCOUNTER → 2025-01-21 | Outpatient (CLI) | payer MEDICARE ==
[2025-01-21 10:52] VITALS: BP 158/92; PULSE 88; RESP 20; TEMP 98.2
--- NOTE | 2025-01-21 11:07 | P.PROGSL ---
Subjective DATE: 01/21/2025 FOLLOW UP VISIT. Patient with obstructive sleep apnea hypopnea syndrome return to sleep center for follow-up visit. Information from previous visit have been reviewed. Patient is using PAP equipment every night for the whole night, getting PAP supplies in time. The patient does not have significant problems with the mask, PAP unit and humidification. [place] sleepiness scale is 0. I checked information from PAP unit. PAP unit pressure 5-10, average 9.9 cm H2O. Usage is 100% for more then 4 hours, average 5.1 hours per night. Leak is increased to 42 l/m. Apnea Hypopnea Index is 2.6, which is normal. MEDICATIONS have been reviewed, please see below. During physical exam: GENERAL: A pleasant patient without any distress. VITAL SIGNS: Please see below, weight is 197.8 lbs. HEENT: PERRLA, EOMI.low position of soft palate, Mallapati 4 . NECK: Supple. No JVD. LUNGS: Clear to percussion and to auscultation. Good air exchange. No wheezing or rhonchi. HEART: S1, S2 regular. ABDOMEN: Soft and nontender.[] EXTREMITIES: No clubbing or cyanosis. RHEUMATOLOGIST: Awake, alert, and oriented x3. No focal deficit. Impressions: 1. Obstructive sleep apnea-hypopnea syndrome. Patient demonstrated great compliance with treatment, benefiting from treatment. 2. Hypertension. 3. Hypothyroidism. 4. Hyperlipidemia. 5. Status post lumpectomy of right breast for cancer in 2020. Plan: 1. Continue using PAP equipment every night for the whole night. 2. Sleep hygiene with regular time in bed for at least 7.5-8 hours 3. PAP unit should stay lower then position of the head. 4. Advised patient to remove all remaining water from humidifier canister daily and make it dry after each usage. Refill canister with fresh distilled water before each usage. 5. Watching weight. 6. Precautions related to driving. No driving if feel any sleepiness. 7. I will maintain prescription for PAP supplies including mask, tube, filters. 8. Follow up visit in 12 months or earlier if patient has any problems. Thank you very much for allowing me to participate in the management of your patient. South Zuniga MD, PhD, FAASM. Diplomat of [place] [employer], Sleep Medicine Board by [place] [employer] Specialist of [facility] [place] Objective - Vital Signs Vital Signs: Vital Signs Temp 98.2 F 01/21/25 10:51 Pulse 88 01/21/25 10:51 Resp 20 01/21/25 10:51 BP 158/92 01/21/25 10:51 Pulse Ox 96 01/21/25 10:51 FiO2 Intake & Output 01/20/25 01/21/25 01/21/25 18:59 06:59 18:59 Weight 89.584 kg Home Medications: Home Medications Medication Instructions Recorded Confirmed Type Atorvastatin [Lipitor] 20 mg PO QAM 03/02/21 01/21/25 History Levothyroxine Sodium [Synthroid] 112 mcg PO QAM 03/02/21 05/19/24 History Acetaminophen/Diphenhydramine 1 tab PO HS 03/29/21 05/05/21 History [Tylenol PM 500-25mg] Albuterol Inhaler [Ventolin Hfa 2 puff INHALATION RT-QID PRN 03/29/21 05/05/21 History Inhaler] Albuterol Nebulized [Ventolin 1.25 mg INHALATION Q6H PRN 03/29/21 05/05/21 History Nebulized] Loratadine [Claritin] 10 mg PO DAILY PRN 03/29/21 05/05/21 History Cholecalciferol [Vitamin D3 (25 25 mcg PO DAILY 04/25/21 05/05/21 History Mcg = 1000 Iu)] Sodium Bicarbonate Tab 650 mg PO DAILY 04/25/21 05/05/21 History Letrozole 2.5 mg PO DAILY 05/19/24 01/21/25 History oxyBUTYnin chloride [oxyBUTYnin 5 mg PO DAILY 05/19/24 05/19/24 History chloride ER] Apixaban [Eliquis] 5 mg PO BID 01/21/25 01/21/25 History Omeprazole 20 mg PO DAILY 01/21/25 01/21/25 History
== END ==
LOC: 3 N SLEEP 10:35
PROVIDERS: ATTEND Internal Medicine
DX: G47.33 Obstructive sleep apnea (adult) (pediatric) (principal); I10 Essential (primary) hypertension; E03.9 Hypothyroidism, unspecified; E78.5 Hyperlipidemia, unspecified; Z98.890 Other specified postprocedural states; Z91.041 Radiographic dye allergy status; Z85.3 Personal history of malignant neoplasm of breast
CPT/HCPCS: 99212